=== PATIENT | male | born 1985 | race African-American/Black ===

== ENCOUNTER 2019-11-26 07:37 | Emergency (ER) | payer SELFPAY ==
[~2019-11-26] VITALS: Ht 180.3 cm; Wt 79.0 kg
[2019-11-26 11:57] VITALS: BP 72/37
== END 2019-11-26 20:58 | disposition left against medical advice (07) ==
LOC: ER 07:37
DX: R10.9 Unspecified abdominal pain (principal); Z53.21 Procedure and treatment not carried out due to patient leaving prior to being seen by health care provider